=== PATIENT | male | born 1965 | race Caucasian/White ===

== ENCOUNTER 2022-05-17 14:28 | Emergency (ER) | payer OTHER ==
[~2022-05-17] VITALS: Ht 175.3 cm; Wt 82.0 kg
[2022-05-17 16:24] LABS: BASOPHILS % 0.5 % (0.0-2.0); EOSINOPHILS % 0.1 % (0.0-5.0); HEMATOCRIT. 35.5 % (42.0-52.0); HEMOGLOBIN. 12.2 g/dL (14.0-18.0); LYMPHOCYTES % 11.3 % (20.0-50.0); MEAN CORPUSCULAR HEMOGLOBIN 32.7 pg (28.0-32.0); MEAN CORPUSCULAR VOLUME 94.8 fL (80.0-94.0); MEAN PLATELET VOLUME 8.5 fl (7.4-10.4); NEUTROPHILS % 77.1 % (40.0-76.0); PLATELET 190 x1000/uL (130-400); RED BLOOD CELL COUNT 3.74 mill/uL (4.7-6.1); RED CELL DISTRIBUTION WIDTH 14.9 % (11.6-14.6)
[2022-05-17 16:30] LABS: CHLORIDE 84 mEq/L (98-107)
[2022-05-17 16:31] LABS: INR 1.3; PARTIAL THROMBOPLASTIN TIME 27.6 sec (23.4-31.0); PROTHROMBIN TIME 14.1 sec (9.6-11.0)
[2022-05-17] MEDS ORDERED: ACETAMINOPHEN 325MG TABLET PO NR (19:30)
[2022-05-17] MEDS ORDERED: SODIUM CHL 0.9% + KCL 20MEQ/L 1,000 ML IV SCH (20:45)
[2022-05-18 00:26] VITALS: BP 139/81
== END 2022-05-18 01:19 | disposition short-term general hospital (02) ==
LOC: ER 14:28
DX: R07.89 Other chest pain (principal); R51.9 Headache, unspecified; I48.91 Unspecified atrial fibrillation; F32.9 Major depressive disorder, single episode, unspecified; I10 Essential (primary) hypertension
CPT/HCPCS: 36415; 70450; 70486; 71045; 80053; 84484; 85025; 85610; 85730; 93005; 96360; 99285; J3480; Z7610